=== PATIENT | male | born 1975 | race Caucasian/White ===

== ENCOUNTER → 2024-08-21 | Outpatient (CLI) | payer BC ==
--- NOTE | 2024-08-21 12:55 | US ---
EXAMINATION TYPE: US abdomen limited DATE OF EXAM: 08/21/2024 COMPARISON: NONE CLINICAL INDICATION: Male, 49 years old with history of R74.8 elevated liver enzymes; TECHNIQUE: Grayscale and color Doppler imaging of the right upper quadrant was performed. FINDINGS: EXAM MEASUREMENTS: Liver Length: 20.6 cm Gallbladder Wall: 0.2 cm CBD: 0.5 cm Right Kidney: 11.6 x 5.3 x 6.0 cm Pancreas: visualized portions wnl, limited by overlying midline bowel gas Liver: enlarged, increased attenuation, decreased visualization of vessels suggestive of fatty infil trate, no dilated ducts, cysts or masses. Gallbladder: wnl Evidence for sonographic Velasquez's sign: no CBD: visualized portions wnl, limited by overlying bowel gas Right Kidney: wnl IMPRESSION: 1. Hepatic steatosis No evidence for suspicious mass. Mild hepatomegaly. 2. No acute process. [facility], , 08/21/2024 12:52 PM
== END | disposition home or self-care (01) ==
LOC: RADUSWWP 07:26
PROVIDERS: ATTEND Family Medicine
DX: K76.0 Fatty (change of) liver, not elsewhere classified (principal); R74.8 Abnormal levels of other serum enzymes
CPT/HCPCS: 76705